=== PATIENT | female | born 1970 | race Caucasian/White ===

== ENCOUNTER 2021-04-13 09:01 | Emergency (ER) | payer MEDICARE, MEDICAID ==
[~2021-04-13] VITALS: Ht 177.8 cm; Wt 112.9 kg
[~2021-04-13 09:01] MED LIST: HYDR-3248 PO; LISI-170 PO; METO25TA35 PO
[2021-04-13] MEDS ORDERED: MORPHINE SULFATE 4 MG/ML, 1ML ONE (09:28)
[2021-04-13] MEDS ORDERED: ONDANSETRON 2MG/ML, 2ML ONE (09:28)
[2021-04-13] MEDS ORDERED: ASPIRIN 81 MG TABLET CHEW ONE (09:29)
[2021-04-13] MEDS ORDERED: SODIUM CHLORIDE 0.9% 1,000ML IVBOLUS ONE (09:30)
[2021-04-13] MEDS ORDERED: MORPHINE SULFATE 4 MG/ML, 1ML IVPush PRN (09:30)
[2021-04-13] MEDS ORDERED: ASPIRIN 81 MG TABLET CHEW PO ONE (09:30)
[2021-04-13] MEDS ORDERED: ONDANSETRON 2MG/ML, 2ML IVPush ONE (09:30)
[2021-04-13 09:34] LABS: BASOPHILS % (AUTO) 1 % (0-1); EOSINOPHILS % (AUTO) 2 % (1-7); LYMPHOCYTES % (AUTO) 28 % (22-44); MEAN CORPUSCULAR HEMOGLOBIN 29.3 pg (27.0-34.8); MEAN CORPUSCULAR HGB CONC 34.1 g/dL (32.4-35.8); MEAN PLATELET VOLUME 7.5 fL (7.4-10.4); MONOCYTES % (AUTO) 5 % (2-9); NEUTROPHILS % (AUTO) 64 % (42-75); PLATELET COUNT 255 x10^3/uL (130-400); RED BLOOD COUNT 5.59 x10^6/uL (3.82-5.3); RED CELL DISTRIBUTION WIDTH 14.3 % (9.6-15.2)
--- NOTE | 2021-04-13 09:40 | NUR ---
PT PRESENTS TO ED WITH C/O LUPUS FLARE UP. STATES THEY WERE AT [facility]IALYSIS CLINIC FOR BROTHER AND HAD HIGH BP ALONG WITH 9/10 PAIN ON ARM. PT A&O, RESPS EVEN AND UNLABORED, NADN. CALL LIGHT IN REACH.
[2021-04-13 09:47] LABS: ALBUMIN 4.7 g/dL (3.4-5.0); ANION GAP 10 mmol/L (5-15); CALCIUM 9.2 mg/dL (8.5-10.1); CHLORIDE 109 mmol/L (98-107); CREATININE 0.66 mg/dL (0.55-1.02)
[2021-04-13 09:50] LABS: TROPONIN I < 0.015 ng/mL (0.000-0.045)
--- NOTE | 2021-04-13 09:51 | NUR ---
PIV PLACED, MEDS ADMINISTERED PER ORDER. PT BP LOWER ON RECHECK.
[2021-04-13] MEDS ORDERED: METOPROLOL TARTRATE 25 MG TAB PO ONE (11:00)
[2021-04-13] MEDS ORDERED: METOPROLOL TARTRATE 25 MG TAB ONE (11:05)
--- NOTE | 2021-04-13 11:11 | NUR ---
pt resting in bed, medicated per order, tolerated well. LEANNE Coto at bedside to discuss poc.
--- NOTE | 2021-04-13 11:53 | NUR ---
discharge instructions reviewed
[2021-04-13 11:54] VITALS: BP 179/85
== END 2021-04-13 11:59 | disposition home or self-care (01) ==
LOC: ED 10:16
DX: I10 Essential (primary) hypertension (principal); R51.9 Headache, unspecified; R07.89 Other chest pain; M79.10 Myalgia, unspecified site; K21.9 Gastro-esophageal reflux disease without esophagitis
CPT/HCPCS: 36415; 71045; 80048; 82040; 83880; 84484; 85025; 93005; 96361; 96374; 99285; J2405; J7030